=== PATIENT | female | born 1950 | race Caucasian/White ===

== ENCOUNTER 2016-07-14 10:15 | Inpatient (IN) | payer MEDICARE ==
--- NOTE | ~2016-07-14 | OR ---
Unit #: [id number] #: [id number] Patient: MAN SANDERSON [id number] [address] [place], [place] [address] [id number] I MR#: [id number] NAME: MAN SANDERSON ROOM: [facility] Date of Procedure: 07/14/2016 Admission Date: 07/14/2016 Surgeon: Philip Mazariegos III, M.D. : 1950 Attending Physician: Philip Mazariegos III, M.D. Referring Physician: Philip Mazariegos III, M.D. Primary Care Physician: Leticia Harley M.D. OPERATIVE REPORT PREOPERATIVE DIAGNOSES Abdominal pain, questionable Lap-Band erosion. POSTOPERATIVE DIAGNOSIS Normal upper endoscopy. PROCEDURE PERFORMED Esophagogastroduodenoscopy with CLOtesting. ANESTHESIA 8 mg of Versed and 50 mg of Demerol. SPECIMENS Antrum was sent for CLOtesting. COMPLICATIONS None apparent. INDICATIONS FOR PROCEDURE This is a 66-year-old lady, who presented to my office with abdominal pain. It is fairly severe in the left upper quadrant. She had a CT scan done yesterday, which showed inflammation and stranding around her Lap-Band tubing. It was suspected that she had an erosion of her band and she is here today for upper endoscopy. DESCRIPTION OF PROCEDURE After consent was obtained, the patient was brought to the endoscopy suite, placed in the left lateral decubitus position. We titrated the above sedation and I passed an EGD scope easily into the esophagus under direct visualization. She had normal peristalsis. No evidence of any erosions or esophagitis. The Lap-Band pouch appeared to be appropriate in size. I was able to advance the scope through the opening of the band without any difficulty. There was no gastritis or ulcerations within the stomach. The pylorus was patent and the first and second portions of duodenum appeared normal. I then retroflexed the scope and carefully evaluated the Lap-Band. I did not see any evidence of an erosion of the band itself. Photos of this were obtained. I then took a biopsy of the antrum for CLOtesting. The scope was straightened and then carefully withdrawn. The patient tolerated the procedure without any problems and I will bring her in for observation overnight until we can sort out the etiology of her abdominal pain. Unit #: [id number] #: [id number] Patient: MAN SANDERSON Dictated by... Philip Mazariegos III, M.D. VCL/lula TD: 07/15/2016 09:32 JOB #: [id number] OPERATIVE REPORT Page 1 of 1 X Philip Mazariegos III, MD PROCEDURE OPERATIVE NOTE
--- NOTE | ~2016-07-14 | CT2 ---
[facility] A Service of [facility] RADIOLOGY TEXT RESULTS PATIENT: MAN SANDERSON LOCATION: [facility] 466-01 : 48 UNIT #: [id number] AGE: [address]: Philip Mazariegos III, MD SEX: F ORDER DR: [id number] [facility] [address] [facility]. [place], [place] [address] [id number] I MR#: [id number] Acc #: [id number] NAME: MAN SANDERSON : 1950 SEX: F STUDY DATE/TIME: 07/16/2016 14:27 UNIT: [facility] ROOM: Pending sale to [facility] STUDY DESCRIPTION: CT Abd and Pelv W Cont Attending Physician: Philip Mazariegos III, M.D. Referring Physician: Philip Mazariegos III, M.D. Ordering Physician: Philip Mazariegos III, M.D. Primary Care Physician: Leticia Harley M.D. MEDICAL IMAGING REPORT This report is preliminary unless electronic signature is present EXAM CT abdomen and pelvis with oral and IV contrast HISTORY Left upper quadrant pain for [address] abdomen and pelvis was performed with oral and IV contrast and is compared to CT 07/13/16. This CT exam was performed with one or more of the following radiation dose reduction techniques: Automatic exposure control, adjustment of mA and/or kV according to patient size, and iterative reconstruction. CT ABDOMEN: A small left pleural effusion has developed since the prior CT, and there is new mild bibasilar subsegmental atelectasis in the lower lobes. Stable small hiatal hernia. Mild fat stranding about the laparoscopic gastric band in the superior left upper quadrant has decreased slightly since the prior CT, but there is new or increased moderate fat stranding along the course of the laparoscopic gastric band tubing in the left lateral wqq-uh-dnxac abdomen, and new fluid or stranding in the left paracolic gutter in the left rgj-zi-iawsq abdomen, concerning for persistent infectious or inflammatory process. No new fluid collection. No drainable collection or abscess. Stable small hiatal hernia. Laparoscopic gastric band position is stable. The liver, gallbladder, spleen, pancreas, kidneys, and adrenal glands are unremarkable. No bowel dilatation. Normal caliber abdominal aorta. CT PELVIS: There is a new small amount of free fluid in the pelvis. Hysterectomy. No bowel dilatation. The urinary bladder is unremarkable. Mild sigmoid diverticulosis. IMPRESSION 1. Compared to the recent CT 07/13/16, there has been an overall increase STS. [facility] A Service of [facility] RADIOLOGY TEXT RESULTS PATIENT: MAN SANDERSON LOCATION: [facility] 466-01 : 48 UNIT #: [id number] AGE: [address]: Philip Mazariegos III, MD SEX: F ORDER DR: in the extent of fat stranding about the laparoscopic gastric band tubing in the left tvm-ep-ruosi abdomen concerning for infectious or inflammatory process. No associated fluid collections or abscess or drainable collection in the left upper quadrant. The degree of stranding about the gastric band tubing in the superior left upper quadrant has decreased slightly, but there is increased stranding about the tubing in the lateral left ehi-th-zcwzr abdomen. 2. New small amount of free fluid in the pelvis. 3. New small left pleural effusion and new mild subsegmental atelectasis in both lung bases. Dictated by... Blu Pritchett M.D. THIS IS AN ELECTRONICALLY VERIFIED REPORT Blu Pritchett M.D. at 07/17/2016 3:00 PM DFL/maggie TD: 07/16/2016 23:41 JOB #: [id number] MEDICAL IMAGING REPORT Page 1 of 1 COPY
--- NOTE | ~2016-07-14 | OR ---
Unit #: [id number] #: [id number] Patient: MAN SANDERSON [id number] [address] [place], [place] [address] [id number] I MR#: [id number] NAME: MAN SANDERSON ROOM: 464 Date of Procedure: 07/18/2016 Admission Date: 07/16/2016 Surgeon: Philip Mazariegos III, M.D. : 1950 Attending Physician: Philip Mazariegos III, M.D. Referring Physician: Philip Mazariegos III, M.D. Primary Care Physician: Leticia Harley M.D. OPERATIVE REPORT PREOPERATIVE DIAGNOSIS Infected Lap-Band system. POSTOPERATIVE DIAGNOSIS Infected Lap-Band system. PROCEDURE PERFORMED Laparoscopic removal of adjustable gastric band and port. GARNETT FIXER Virgie Mcrae, certified financial planner. SPECIMENS None. COMPLICATIONS None apparent. DRAINS One flat Luis-Cabrera drain placed in the epigastric region. INDICATIONS FOR PROCEDURE This is a 66-year-old lady, who has been having some pretty severe intermittent left upper quadrant pain and left flank pain. She underwent CT scan prior to admission and was noted to have some inflammation around her tubing. I then performed upper endoscopy on her and there was no evidence of an erosion of her band. She was admitted with IV antibiotics and underwent repeat CT scan on Sunday. At that time, there was worsening inflammation and stranding around the tubing and it is now thought that she has a confirmed infection of her Lap-Band system. She is here today for removal. DESCRIPTION OF PROCEDURE After consent was obtained, the patient was brought to the operating room and placed in the supine position. General anesthetic was administered and her abdomen was prepped and draped in standard surgical fashion. I made a 1-inch incision overlying her port. I dissected down and identified the port and removed the 2 lateral stay sutures and elevated the port out of the wound. I then trimmed the excess band tubing and passed a 5-mm trocar overlying the port tubing and obtained CO2 pneumoperitoneum. Next, I placed a 10-mm Visiport in that location. I then placed my remaining ports, which included a 5-mm port in the right Unit #: [id number] #: [id number] Patient: MAN SANDERSON upper quadrant and the left lateral subcostal region. A 5-mm Alexis liver retractor was placed in the subxiphoid region and a 10-mm port was placed in the left upper quadrant. I then found easily the tubing and it was encapsulated around some omentum and plastered to the left lateral sidewall with a little bit of purulent material around the tubing itself. I was able to fall this all the way up to the upper portion of the stomach. I was able to easily identify the buckle of the Lap-Band and once this was freed up from the surrounding capsule, I unbuckled it, divided it, and removed it from the upper portion of the stomach. There was no evidence of an erosion of the band meaning that there was no discoloration of the band itself. I did close the tract where the band was removed from with 2 separate interrupted 0 Ethibond ngwusy-fj-eview sutures. I then removed all components of the band tubing and device. I placed a flat Luis-Cabrera drain in the epigastric region. It was brought out through a left upper quadrant stab incision. I then removed all the trocars. I released the pneumoperitoneum. I injected all port sites with 0.25% plain Marcaine. I reapproximated the skin edges with interrupted 4-0 Vicryl subcuticular suture. The drain was secured to the level of skin with a 2-0 silk suture. The patient was brought to the recovery room in stable condition. Dictated by... Philip Mazariegos III, M.D. VCL/lula TD: 07/19/2016 07:50 JOB #: [id number] OPERATIVE REPORT Page 1 of 1 X Philip Mazariegos III, MD PROCEDURE OPERATIVE NOTE
--- NOTE | ~2016-07-14 | DS ---
Unit #: [id number] #: [id number] Patient: MAN SANDERSON [id number] [address] [place], [place] [address] [id number] MR#: [id number] NAME: MAN SANDERSON ROOM: 464 Age: 66 Sex: F Admission Date: 07/14/2016 : 1950 Discharge Date: 07/20/2016 Attending Physician: Philip Mazariegos III, M.D. Referring Physician: Philip Mazariegos III, M.D. Primary Care Physician: Leticia Harley M.D. DISCHARGE SUMMARY CONSULTANTS HIPS. PROCEDURES PERFORMED On 07/14/2016 the patient underwent upper endoscopy and on 07/18/2016 she underwent laparoscopic removal of adjustable gastric band and port. ADMITTING DIAGNOSIS Abdominal pain. DISCHARGE DIAGNOSIS Infected lap band port. BRIEF HOSPITAL COURSE This is a 66-year-old lady I saw in the office with abdominal pain. She had a CT scan which suggested infection of her lap band, consistent with an erosion. She underwent upper endoscopy and there was no evidence of an erosion seen. She was started on IV antibiotics and did clinically improved over the weekend. Part of our rationale for this was that she was on blood thinners as well, and I wanted that to drift out of her system. I then repeated her CT scan on hospital day number two and she was noted to have increased stranding around her lap band tubing. The decision was made that we needed to remove her lap band completely. She underwent that procedure on 07/18/2016. There were no complicating issues with that and postoperatively she had an upper GI that did not show any leak of her lap band system. She was advanced to clear liquids and did run isolated temperature postoperatively. However, that came down to normal. She was feeling much better prior to discharge. DISPOSITION Discharge to home. FOLLOWUP She is to follow up with me in the office in 10 days. DISCHARGE MEDICATION 1. I am going to send her home on Augmentin 875 mg p.o. b.i.d. since she has an elevated white blood cell count still. 2. She has been started back on all of her home medications. 3. She already has a pain script at home. DISCHARGE INSTRUCTIONS She has been instructed to call me specifically if she has any fevers or trouble eating or problems with her incisions. Unit #: [id number] #: [id number] Patient: MAN SANDERSON Dictated by... Philip Mazariegos III, M.D. VCL/gz TD: 07/20/2016 08:44 JOB #: [id number] CC: Leticia Harley M.D. DISCHARGE SUMMARY Page 1 of 1 X Philip Mazariegos III, MD X DISCHARGE SUMMARY
--- NOTE | ~2016-07-14 | CR97 ---
[facility] A Service of [facility] RADIOLOGY TEXT RESULTS PATIENT: MAN SANDERSON LOCATION: [facility] 464-01 : 48 UNIT #: [id number] AGE: [address]: Philip Mazariegos III, MD SEX: F ORDER DR: [id number] [place] [id number] [facility]. [place], [place] [address] [id number] MR#: [id number] Acc #: [id number] NAME: MAN SANDERSON : 1950 SEX: F STUDY DATE/TIME: 07/18/2016 13:32 UNIT: [facility] ROOM: [facility] STUDY DESCRIPTION: CR Esophagram Attending Physician: Philip Mazariegos III, M.D. Referring Physician: Philip Mazariegos III, M.D. Ordering Physician: Philip Mazariegos III, M.D. Primary Care Physician: Leticia Harley M.D. MEDICAL IMAGING REPORT This report is preliminary unless electronic signature is present EXAM Esophagram, 07/18/16 INDICATIONS 66-year-old female status post lap band removal today for infection. Evaluation for potential leak requested. TECHNIQUE Spot fluoroscopic views of the esophagus were obtained after the uneventful oral administration of liquid Gastrografin and subsequently a liquid barium solution. Correlation is made with CT 07/16/16. FINDINGS Notes indicate approximately 2.1 minutes of fluoroscopy time was used in the case. Fifteen images from the procedure were saved to the DR PACS System. Initial golf starter and ranger image demonstrates a radiopaque drain in the epigastric region. Subsequent swallows of liquid Gastrografin demonstrated opacification of the distal esophagus, which demonstrated increased secondary and tertiary contractions. There was subsequent passage of contrast across the GE junction into the stomach. No evidence of leak was identified with Gastrografin. Subsequently, barium was administered and again no leak was identified. The patient was obliqued to the extent possible and these were the best images possible, given the patient's functional status. An appropriate note was left in the patient's chart at the conclusion of the procedure regarding the results. IMPRESSION 1. Limited esophagram demonstrates no evidence of leak following lap band removal. 2. Notes indicate 2.1 minutes of fluoroscopy time was used in the case. Fifteen images from the procedure were saved to the DR PACS System. [facility] A Service of [facility] RADIOLOGY TEXT RESULTS PATIENT: MAN SANDERSON LOCATION: [place] [address] : 48 UNIT #: [id number] AGE: [address]: Philip Mazariegos III, MD SEX: F ORDER DR: Dictated by... Saravanan Fuentes M.D. THIS IS AN ELECTRONICALLY VERIFIED REPORT Saravanan Fuentes M.D. at 07/19/2016 9:50 AM LIO/maggie TD: 07/18/2016 23:03 JOB #: [id number] MEDICAL IMAGING REPORT Page 1 of 1 COPY
--- NOTE | ~2016-07-14 | CO ---
Unit #: [id number] #: [id number] Patient: MAN SANDERSON [id number] [address] [place], [place] [address] [id number] MR#: [id number] NAME: MAN SANDERSON ROOM: [facility] Age: 66 Sex: F Admission Date: 07/14/2016 : 1950 Attending Physician: Philip Mazariegos III, M.D. Primary Care Physician: Leticia Harley M.D. CONSULTATION REPORT REASON FOR CONSULTATION Abdominal pain. HISTORY OF PRESENT ILLNESS The patient is a 66-year-old female with a history of a lap band surgery, admitted with an abdominal pain. The patient was admitted directly to the surgery service for the upper endoscopy. The patient had an upper endoscopy with [facility] and it shows concerning for the lap band erosions. The patient stated the patient has pain still present but it is a little better than before and it only hurts when she moves. PAST MEDICAL HISTORY History of a hypothyroidism, asthma, pacemaker, acid reflux, degenerative joint disease and afib. PAST SURGICAL HISTORY Tonsillectomy, hysterectomy, laparoscopy, gastric, knee replacement, cataracts. ALLERGIES Sulfa. SOCIAL HISTORY No history of smoking, alcohol or any illicit drug abuse. FAMILY HISTORY Reviewed and none. REVIEW OF SYMPTOMS Fourteen-point review of symptoms performed and only pertinent positive findings as described above, remaining are negative. HOME MEDICATIONS She is on levothyroxine (Synthroid), Singulair, Diltiazem, Losartan, hydrochlorothiazide, Protonix, Toprol, fluticasone, flecainide, acetaminophen, calcium, Lexapro, hydrocodone and acetaminophen. PHYSICAL EXAMINATION GENERAL APPEARANCE: On examination the patient is lying on a bed not in acute distress. VITAL SIGNS: Temperature is afebrile, pulse 71, respiration 16, oxygen saturation 90% to 92% on room air, blood pressure 130/38. HEENT: Head Unit #: [id number] #: [id number] Patient: MAN SANDERSON atraumatic/normocephalic. Pupils equal, round and reacting to light and accommodation. Extraocular movements are intact. NECK: Supple. LUNGS: Decreased air entry at the bases. HEART: Regular rate and rhythm. ABDOMEN: Soft. Tender in the left upper quadrant and left lateral abdomen. No cellulitis or tenderness around her port. NEUROLOGIC: Alert, awake, oriented. No gross focal motor deficit. EXTREMITIES: No cyanosis. No clubbing. ASSESSMENT 1. Abdominal pain, likely secondary to status post EGD with the erosions. 2. Atrial fibrillation. 3. Asthma. PLAN Plan to continue postop care with the postsurgical evaluation and continue with the clear liquid diet and will hold the blood thinner Savaysa and continue with the pain medications and the antibiotics and will check the lactic acid and the CBC/BMP as no blood has been done recently and further recommendations will follow. Dictated by... Mere Vincent TD: 07/15/2016 13:59 JOB #: [id number] CONSULTATION REPORT Page 1 of 1 X JANESSA CAMPBELL MD X CONSULTATION REPORT
[~2016-07-14 10:15] MED LIST: ALEVE PO; COZAAR PO; CYMBALTA PO; FLAX SEED OIL1000 MG PO; GINKGO BILOBA PO; LIOTHYRONINE SO5 MCG PO; LOTREL 10/20 MG1 CAP PO; MULTI-VITAMIN1 TAB PO; PRILOSEC PO; SAVELLA50 MG PO; SINGULAIR PO; SYNTHROID25 MCG PO; THYROID PO; TOPROL XL PO; TRICOR PO; TUMS; ZOCOR PO
[2016-07-14] MEDS ORDERED: LIOTHYRONINE SO5 MC1 PO (10:54)
[2016-07-14] MEDS ORDERED: MONTELUKAST SOD10 MG PO (10:55)
[2016-07-14] MEDS ORDERED: SYNTHROID (10:55)
[2016-07-14] MEDS ORDERED: SAVAYSA60 MG PO (10:55)
[2016-07-14] MEDS ORDERED: DILTIAZ ER PO (10:56)
[2016-07-14] MEDS ORDERED: LOSARTAN POTAS100 MG PO (10:56)
[2016-07-14] MEDS ORDERED: HYDROCHLOROTH12.5 MG PO (10:57)
[2016-07-14] MEDS ORDERED: PROTONIX PO (10:57)
[2016-07-14] MEDS ORDERED: TOPROL PO (10:57)
[2016-07-14] MEDS ORDERED: FLECAINIDE ACE100 MG PO (10:58)
[2016-07-14] MEDS ORDERED: FLOVENT DISKUS50 MCG (10:58)
[2016-07-14] MEDS ORDERED: ACETAMINOPHEN500 M5 PO (10:59)
[2016-07-14] MEDS ORDERED: CALCIUM 500 +1 EAC6 PO (10:59)
[2016-07-14] MEDS ORDERED: ESCITALOPRAM OX10 MG PO (11:00)
[2016-07-14] MEDS ORDERED: HYDROCODON-ACE1 EAC7 PO (11:33)
[2016-07-14 20:09] LABS: BASOPHIL# 0.1 X10e3 (0-0.3); BASOPHIL% 0.6 % (0-2.5); EOSINOPHIL# 0.1 X10e3 (0-0.7); EOSINOPHIL% 0.8 % (0.0-7.0); HEMATOCRIT 37.6 % (35.0-45.0); LYMPHOCYTE# 1.8 X10e3 (1.0-3.5); LYMPHOCYTE% 10.8 % (17.0-45.0); MEAN CELL VOLUME 80.1 FL (83-96); MEAN CORPUSCULAR HEMOGLOBIN 25.6 PG (28-34); MEAN PLATELET VOLUME 7.8 FL (6.5-11.5); MONOCYTE# 1.5 X10e3 (0-1.0); MONOCYTE% 9.3 % (3.0-12.0); NEUTROPHIL# 12.9 X10e3 (1.5-7.1); NEUTROPHIL% 78.5 % (40-75); PLATELET COUNT 253 X10e3 (140-420); RED BLOOD COUNT 4.69 X10e (3.90-5.30); RED CELL DISTRIBUTION WIDTH 14.3 % (11.0-15.5); WHITE BLOOD COUNT 16.4 X10e3 (4.0-10.5)
[2016-07-14 20:10] LABS: DIFF IND YES
[2016-07-14 20:21] LABS: INR 1.1; PROTHROMBIN TIME (PATIENT) 11.8 SECONDS (9.6-11.5)
[2016-07-14 20:26] LABS: BUN/CREATININE RATIO 14.44; CALCIUM SERUM 8.8 mg/dL (8.4-10.2); CREATININE SERUM 0.9 mg/dL (0.6-1.4); GLOM FILT RATE Estimated 65.7 mL/min (>60); PLATELET ESTIMATE NORMAL (NORMAL); POTASSIUM 3.3 mmol/L (3.5-5.1); RBC NORMAL YES
[2016-07-15 03:57] LABS: BASOPHIL# 0.1 X10e3 (0-0.3); BASOPHIL% 0.7 % (0-2.5); EOSINOPHIL# 0.2 X10e3 (0-0.7); EOSINOPHIL% 1.1 % (0.0-7.0); HEMATOCRIT 33.6 % (35.0-45.0); HEMOGLOBIN 10.7 gm/dL (12.0-16.0); LYMPHOCYTE# 1.9 X10e3 (1.0-3.5); LYMPHOCYTE% 14.1 % (17.0-45.0); MEAN CELL VOLUME 79.4 FL (83-96); MEAN CORPUSCULAR HEMOGLOBIN 25.4 PG (28-34); MEAN PLATELET VOLUME 7.7 FL (6.5-11.5); MONOCYTE# 1.6 X10e3 (0-1.0); MONOCYTE% 12.3 % (3.0-12.0); NEUTROPHIL# 9.5 X10e3 (1.5-7.1); NEUTROPHIL% 71.8 % (40-75); PLATELET COUNT 244 X10e3 (140-420); RED BLOOD COUNT 4.23 X10e (3.90-5.30); RED CELL DISTRIBUTION WIDTH 14.6 % (11.0-15.5); WHITE BLOOD COUNT 13.2 X10e3 (4.0-10.5)
[2016-07-15 03:59] LABS: DIFF IND NO
[2016-07-15 04:01] LABS: INR 1.2; PROTHROMBIN TIME (PATIENT) 12.5 SECONDS (9.6-11.5)
[2016-07-15 04:17] LABS: BUN/CREATININE RATIO 12.22; CALCIUM SERUM 8.6 mg/dL (8.4-10.2); CREATININE SERUM 0.9 mg/dL (0.6-1.4); GLOM FILT RATE Estimated 65.7 mL/min (>60); POTASSIUM 3.7 mmol/L (3.5-5.1)
[2016-07-15 10:50] LABS: URINE SOURCE CLEAN CATCH
[2016-07-15 11:23] LABS: URINE APPEARANCE CLOUDY; URINE BILIRUBIN NEG (NEG); URINE BLOOD NEG (NEG); URINE COLOR YELLOW; URINE GLUCOSE NEG (NEG); URINE KETONE NEG (NEG); URINE LEUKOCYTE ESTERASE 2+ (NEG); URINE NITRATE NEG (NEG); URINE PROTEIN NEG (NEG); URINE SPECIFIC GRAVITY 1.007 (1.003-1.035); URINE UROBILINOGEN 0.2 MG/DL (NEG)
[2016-07-15 11:28] LABS: URINE BACTERIA AUWI 2+ (NEGATIVE); URINE SQUAMOUS EPITHELIAL CELL FEW /[HPF]
[2016-07-16 02:45] LABS: HEMATOCRIT 32.1 % (35.0-45.0); HEMOGLOBIN 10.2 gm/dL (12.0-16.0); MEAN CELL VOLUME 79.8 FL (83-96); MEAN CORPUSCULAR HEMOGLOBIN 25.5 PG (28-34); MEAN CORPUSCULAR HGB CONC 31.9 g/dL (30-36); MEAN PLATELET VOLUME 7.6 FL (6.5-11.5); RED BLOOD COUNT 4.02 X10e (3.90-5.30); RED CELL DISTRIBUTION WIDTH 14.5 % (11.0-15.5); WHITE BLOOD COUNT 11.7 X10e3 (4.0-10.5)
[2016-07-16 03:06] LABS: BUN/CREATININE RATIO 12.22; CALCIUM SERUM 8.5 mg/dL (8.4-10.2); CREATININE SERUM 0.9 mg/dL (0.6-1.4); GLOM FILT RATE Estimated 65.7 mL/min (>60); POTASSIUM 4.1 mmol/L (3.5-5.1)
[2016-07-17 02:40] LABS: HEMATOCRIT 33.8 % (35.0-45.0); HEMOGLOBIN 10.7 gm/dL (12.0-16.0); MEAN CELL VOLUME 80.2 FL (83-96); MEAN CORPUSCULAR HEMOGLOBIN 25.4 PG (28-34); MEAN CORPUSCULAR HGB CONC 31.6 g/dL (30-36); MEAN PLATELET VOLUME 7.7 FL (6.5-11.5); RED BLOOD COUNT 4.22 X10e (3.90-5.30); RED CELL DISTRIBUTION WIDTH 14.9 % (11.0-15.5); WHITE BLOOD COUNT 10.7 X10e3 (4.0-10.5)
[2016-07-18 03:31] LABS: BASOPHIL# 0.1 X10e3 (0-0.3); BASOPHIL% 0.7 % (0-2.5); EOSINOPHIL# 0.3 X10e3 (0-0.7); EOSINOPHIL% 2.9 % (0.0-7.0); HEMATOCRIT 33.1 % (35.0-45.0); HEMOGLOBIN 10.6 gm/dL (12.0-16.0); LYMPHOCYTE# 2.5 X10e3 (1.0-3.5); MEAN CELL VOLUME 79.6 FL (83-96); MEAN CORPUSCULAR HEMOGLOBIN 25.5 PG (28-34); MONOCYTE% 9.9 % (3.0-12.0); NEUTROPHIL% 61.5 % (40-75); PLATELET COUNT 301 X10e3 (140-420); RED BLOOD COUNT 4.16 X10e (3.90-5.30); RED CELL DISTRIBUTION WIDTH 14.7 % (11.0-15.5); WHITE BLOOD COUNT 9.8 X10e3 (4.0-10.5)
[2016-07-18 03:34] LABS: DIFF IND NO
[2016-07-18 03:50] LABS: BUN/CREATININE RATIO 12.22; CALCIUM SERUM 8.5 mg/dL (8.4-10.2); CREATININE SERUM 0.9 mg/dL (0.6-1.4); GLOM FILT RATE Estimated 65.7 mL/min (>60); POTASSIUM 4.4 mmol/L (3.5-5.1)
[2016-07-18 23:18] LABS: URINE SOURCE CATH
[2016-07-18 23:24] LABS: URINE APPEARANCE CLEAR; URINE BILIRUBIN NEG (NEG); URINE BLOOD NEG (NEG); URINE COLOR DK YELLOW; URINE GLUCOSE NEG (NEG); URINE KETONE NEG (NEG); URINE LEUKOCYTE ESTERASE 1+ (NEG); URINE NITRATE NEG (NEG); URINE PROTEIN NEG (NEG); URINE SPECIFIC GRAVITY 1.024 (1.003-1.035)
[2016-07-18 23:27] LABS: U HYALINE CASTS AUWI 0-2 /[LPF]; URBCS1 AUWI 0-2 /[HPF] (0-2); URINE BACTERIA AUWI NEG (NEGATIVE); URINE SQUAMOUS EPITHELIAL CELL NONE SEEN /[HPF]; UWBCS1 AUWI 0-2 (0-5)
[2016-07-18 23:32] LABS: CULTURE INDICATED? NO
[2016-07-19 05:18] LABS: BASOPHIL# 0.1 X10e3 (0-0.3); BASOPHIL% 0.3 % (0-2.5); EOSINOPHIL# 0.1 X10e3 (0-0.7); EOSINOPHIL% 0.8 % (0.0-7.0); HEMATOCRIT 34.4 % (35.0-45.0); HEMOGLOBIN 10.7 gm/dL (12.0-16.0); LYMPHOCYTE# 1.1 X10e3 (1.0-3.5); LYMPHOCYTE% 7.6 % (17.0-45.0); MEAN CELL VOLUME 79.9 FL (83-96); MEAN CORPUSCULAR HEMOGLOBIN 24.9 PG (28-34); MEAN CORPUSCULAR HGB CONC 31.2 g/dL (30-36); MEAN PLATELET VOLUME 7.7 FL (6.5-11.5); MONOCYTE# 1.4 X10e3 (0-1.0); MONOCYTE% 9.6 % (3.0-12.0); NEUTROPHIL# 12.3 X10e3 (1.5-7.1); NEUTROPHIL% 81.7 % (40-75); PLATELET COUNT 314 X10e3 (140-420); RED BLOOD COUNT 4.31 X10e (3.90-5.30); RED CELL DISTRIBUTION WIDTH 14.6 % (11.0-15.5)
[2016-07-19 05:20] LABS: DIFF IND NO
[2016-07-19 05:37] LABS: BUN/CREATININE RATIO 9.16; CALCIUM SERUM 8.2 mg/dL (8.4-10.2); CREATININE SERUM 1.2 mg/dL (0.6-1.4); GLOM FILT RATE Estimated 46.4 mL/min (>60); POTASSIUM 4.2 mmol/L (3.5-5.1)
[2016-07-20 03:53] LABS: HEMATOCRIT 30.3 % (35.0-45.0); HEMOGLOBIN 9.5 gm/dL (12.0-16.0); MEAN CORPUSCULAR HEMOGLOBIN 25.2 PG (28-34); MEAN CORPUSCULAR HGB CONC 31.5 g/dL (30-36); MEAN PLATELET VOLUME 7.7 FL (6.5-11.5); RED BLOOD COUNT 3.79 X10e (3.90-5.30); RED CELL DISTRIBUTION WIDTH 14.5 % (11.0-15.5); WHITE BLOOD COUNT 17.7 X10e3 (4.0-10.5)
[2016-07-20 04:11] LABS: BUN/CREATININE RATIO 8.18; CALCIUM SERUM 8.4 mg/dL (8.4-10.2); CREATININE SERUM 1.1 mg/dL (0.6-1.4); GLOM FILT RATE Estimated 51.6 mL/min (>60); MAGNESIUM 1.7 mg/dL (1.6-3.0); POTASSIUM 3.9 mmol/L (3.5-5.1)
[2016-07-20] MEDS ORDERED: AUGMENTIN PO (07:36)
== END 2016-07-20 08:58 | disposition home or self-care (01) | DRG 988 ==
LOC: COPS 10:15 → C4C 14:35 → COPS 14:35 → C4C 16:37 → COPS 16:37 → C4C 07-16 09:00
PROVIDERS: Internal Medicine; Nurse Practitioner; Surgery
PROC: 0DB78ZX Excision of Stomach, Pylorus, Via Natural or Artificial Opening Endoscopic, Diagnostic (ICD-10-PCS; 2016-07-14 13:30)
PROC: 0DP64CZ Removal of Extraluminal Device from Stomach, Percutaneous Endoscopic Approach (ICD-10-PCS; principal; 2016-07-18 08:30)
DX: K95.01 Infection due to gastric band procedure (principal); J98.11 Atelectasis; I48.0 Paroxysmal atrial fibrillation; E66.01 Morbid (severe) obesity due to excess calories; Z98.84 Bariatric surgery status; I48.91 Unspecified atrial fibrillation; Z88.1 Allergy status to other antibiotic agents; Z88.2 Allergy status to sulfonamides; K21.9 Gastro-esophageal reflux disease without esophagitis; Z95.0 Presence of cardiac pacemaker; E03.9 Hypothyroidism, unspecified; J30.9 Allergic rhinitis, unspecified; J45.909 Unspecified asthma, uncomplicated; Z68.38 Body mass index [BMI] 38.0-38.9, adult; R13.10 Dysphagia, unspecified; M79.7 Fibromyalgia; I10 Essential (primary) hypertension; E78.00 Pure hypercholesterolemia, unspecified; E78.5 Hyperlipidemia, unspecified; E66.9 Obesity, unspecified; D64.9 Anemia, unspecified
CPT/HCPCS: 74177; 74220; 80048; 81003; 82947; 83605; 83735; 85025; 85027; 85610; 87040; 87077; 87086; 94010; 94760; J0330; J1170; J1650; J1956; J2175; J2250; J2270; J2405; J2550; J2710; J3010; Q9967

== ENCOUNTER → 2016-07-31 | Outpatient (CLI) | payer MEDICARE ==
[~2016-07-31] MED LIST changes: +ACETAMINOPHEN500 M5 PO; +AUGMENTIN PO; +CALCIUM 500 +1 EAC6 PO; +DILTIAZ ER PO; +ESCITALOPRAM OX10 MG PO; +FLECAINIDE ACE100 MG PO; +FLOVENT DISKUS50 MCG; +HYDROCHLOROTH12.5 MG PO; +HYDROCODON-ACE1 EAC7 PO; +LIOTHYRONINE SO5 MC1 PO; +LOSARTAN POTAS100 MG PO; +MONTELUKAST SOD10 MG PO; +PROTONIX PO; +SAVAYSA60 MG PO; +SYNTHROID; +TOPROL PO
[2016-07-31 09:01] LABS: HEMATOCRIT 36.5 % (35.0-45.0); HEMOGLOBIN 11.7 gm/dL (12.0-16.0); MEAN CELL VOLUME 78.4 FL (83-96); MEAN CORPUSCULAR HGB CONC 31.9 g/dL (30-36); MEAN PLATELET VOLUME 7.4 FL (6.5-11.5); RED BLOOD COUNT 4.66 X10e (3.90-5.30); RED CELL DISTRIBUTION WIDTH 14.7 % (11.0-15.5); WHITE BLOOD COUNT 9.9 X10e3 (4.0-10.5)
== END | disposition home or self-care (01) ==
LOC: CLAB 08:39
PROVIDERS: Internal Medicine Cardiovascular Disease
DX: I48.0 Paroxysmal atrial fibrillation (principal); D64.9 Anemia, unspecified
CPT/HCPCS: 36415; 85027